=== PATIENT | male | born 1970 | race Caucasian/White ===

== ENCOUNTER 2016-12-02 14:29 | Inpatient (IN) | payer OTHER ==
[~2016-12-02] VITALS: Ht 190.5 cm; Wt 142.6 kg
--- NOTE | 2016-12-02 14:47 | NUR ---
PT BIB [facility] FOR C/O LEFT KNEE PAIN. PER PT HE WAS AT A [employer] HOUSE [employer] FOR FLYS WHEN HE SLIPPED AND FELL INJURING HIS LEFT KNEE. PT REPORTS HIS KNEE IS AN ACHING FEELING AND RATES THE PAIN A 6/10 AT THE TIME OF ARRIVAL TO ED. PT RECEVIED 100MCG FENTANYL FIXTURE MAKER. PT A&OX4, BREATHING E/U. PTS SKIN WARM AND DRY TO TOUCH.
--- NOTE | 2016-12-02 15:19 | NUR ---
PT MEDICATED PER EMAR ORDERS. PT EDUCATED ON MEDICATION PRIOR TO ADMINISTRATION AND VERBALIZED UNDERSTANDING.
--- NOTE | 2016-12-02 15:34 | NUR ---
PT TO CT VIA QUE
[2016-12-02] MEDS ORDERED: SOTALOL HCL80 MG PO (15:53)
[2016-12-02] MEDS ORDERED: LIPITOR40 MG PO (15:54)
[2016-12-02] MEDS ORDERED: FLUOXETINE40 MG PO (15:54)
[2016-12-02] MEDS ORDERED: BUPROPION HYDR300 MG PO (15:54)
[2016-12-02] MEDS ORDERED: XARELTO10 M1 PO (15:54)
[2016-12-02] MEDS ORDERED: FISH OIL1000 MG PO (15:55)
[2016-12-02] MEDS ORDERED: C-10001000 MG PO (15:55)
--- NOTE | 2016-12-02 16:45 | NUR ---
REPORT GIVEN TO SHRAVAN BENTON TO ASSUME CARE OF PT PTS PRIMARY NURSE.
--- NOTE | 2016-12-02 17:25 | NUR ---
REC'D PT FROM ER VIA [facility]. PT IS AAOX4. TELE #26 SR WITH BBB. LUNG SOUNDS CLEAR. NO SOB NOTED. LLE IN LONG LEG ORTHOGLASS SPLINT WITH AMADOR BANDAGE. PT C/O 5/10 LEFT KNEE PAIN. IV NOTED TO RAC. INTACT AND PATENT. ORIENTED PT TO CALL LIGHT. BED IN LOWEST POSITION. WILL ENDORSE TO PRIMARY RN.
[2016-12-02 17:30] VITALS: BP 117/68
[2016-12-02 17:38] VITALS: BP 117/68
--- NOTE | 2016-12-02 18:00 | NUR ---
RECEIVED REPORT FROM JEANNE, ASSUMING PT CARE RESPONSABILITIES.
[2016-12-02 18:08] LABS: PLATELET COUNT 224 x10^3mcL (130-400); RED CELL DISTRIBUTION WIDTH 14.4 % (11.5-14.5)
[2016-12-02 18:10] LABS: BASOPHIL % 0 % (0-2)
[2016-12-02 18:14] LABS: ALBUMIN 3.7 g/dL (3.4-5.0); ALKALINE PHOSPHATASE 55 U/L (46-116); ALT/SGPT 40 U/L (16-63); AST/SGOT 16 U/L (15-37); BILIRUBIN TOTAL 1.2 mg/dL (0.20-1.00); CALCIUM 8.9 mg/dL (8.5-10.1); CARBON DIOXIDE 25.8 mmol/L (21-32); CHLORIDE SERUM 98 mmol/L (98-107); GFR1 > 60 mL/min; GLUCOSE SERUM 104 mg/dL (74-106); MAGNESIUM 2.1 mg/dL (1.8-2.4); POTASSIUM SERUM 4.2 mmol/L (3.5-5.1); SODIUM SERUM 133 mmol/L (136-145); TOTAL PROTEIN, SERUM 7.1 g/dL (6.4-8.2)
--- NOTE | 2016-12-02 18:17 | NUR ---
CHECKED ON PT, SITTING HAVING DINNER DENIES ANY NEED OF PAIN MEDS AT THIS TIME, PT PROVIDED WITH EDUCATION ON PAIN MANAGEMENT NOT TO ALLOW PAIN TO BECOME TOO ELEVATED WHERE IT MAY BE HARD TO CONTROL LATER ON AND MANAGE IT. PT VERBALIZED UNDERSTANDING CALL LIGHT IN REACH NEEDS ATTENDED TO.
[2016-12-02 18:25] LABS: FREE T4 0.98 ng/dL (0.76-1.46); FREE THYROXINE INDEX 2.2 ug/dL (1.4-4.5); T4(THYROXINE) 6.2 ug/dL (4.7-13.3)
--- NOTE | 2016-12-02 19:30 | NUR ---
REC'D PT FROM DAY NURSE. AAOX4, SPEECH CLEAR, FOLLOWS COMMANDS. NO SIGNS OF DISTRESS NOTED. BREATHING EVEN/UNLABORED ON RA. ON TELE 26, PACED ON DEMAND. XARELTO ON HOLD, TO START HEPARIN SQ. NO EDEMA NOTED. DENIES ABD PAIN, TENDERNESS, OR N/V. VOIDING FREELY. L TIBIAL FX. ORTHOGLASS SPLINT TO LLE WRAPPED WITH AMADOR BANDAGE, CDI. PT REPORTS PAIN TO LLE 4/10, TOLERABLE AT THIS TIME. SKIN INTACT. CALL LIGHT WITHIN REACH, BED AT LOWEST POSITION. WILL CONTINUE TO MONITOR.
[2016-12-02 21:25] VITALS: BP 106/56
--- NOTE | 2016-12-02 21:37 | NUR ---
PT C/O LLE PAIN 5/10. NORCO GIVEN PER ORDER. WILL MONITOR FOR RELIEF.
[2016-12-02 23:14] LABS: microscopic required? NO
[2016-12-02 23:35] LABS: UA SPECIFIC GRAVITY 1.015 (1.005-1.035)
[2016-12-02 23:36] LABS: urine erythrocyte NEGATIVE (NEGATIVE)
[2016-12-03 00:15] LABS: AMPHETAMINE QUAL UR NONE DETECTED (NEG <=1000)
--- NOTE | 2016-12-03 01:26 | NUR ---
PT RESTING IN BED WITH EYES CLOSED. NO SIGNS OF DISTRESS NOTED. BREATHING EVEN/UNLABORED ON RA. CALL LIGHT WITHIN REACH, BED AT LOWEST POSITION. WILL CONTINUE TO MONITOR.
[2016-12-03 05:25] VITALS: BP 99/64
--- NOTE | 2016-12-03 06:33 | NUR ---
PT RESTING IN BED. NO SIGNS OF DISTRESS NOTED. BREATHING EVEN/UNLABORED ON RA. C/O LLE PAIN 08/13. NORCO GIVEN PER ORDER. SPLINT TO LLE WITH AMADOR WRAP IN PLACE, CDI. NO SIGNIFICANT CHANGES DURING SHIFT. REFUSING LAB DRAW. EXPLAINED IMPORTANCE OF LAB DRAWS FOR CARE AND TRENDING DATA. PT VERBALIZED UNDERSTANDING BUT STATED HE JUST HAD A LAB DRAW LESS THAN 24 HR AGO AND REFUSES AT THIS TIME. DR. CARBAJAL MADE AWARE. WILL ENDORSE TO DAY NURSE.
--- NOTE | 2016-12-03 07:29 | NUR ---
echocardiogram pending-patient requested test be done after he eats
--- NOTE | 2016-12-03 07:30 | NUR ---
PT RECEIVED FROM NIGHT NURSE IN NO ACUTE DISTRESS. RESPIRATIONS EVEN AND UNLABORED ON RA. L EXTREMITY ELEVATED ON PILLOW. DENIES PAIN AT THIS TIME. IVF INFUSING AT BEDSIDE. BED IN LOWEST POSITION. CALL LIGHT WITHIN REACH. WILL CONTINUE TO MONITOR.
[2016-12-03 10:12] VITALS: BP 112/69
--- NOTE | 2016-12-03 12:48 | NUR ---
PT GIVEN LOADING DOSE OF 8600 UNITS OF HEPARIN. STARTED ON 1500 UNITS/HR PER HEPARIN PROTOCOL. VERIFIED BY SANDRA BENTON. ORDERED NEXT PTT FOR 1830.
--- NOTE | 2016-12-03 12:50 | NUR ---
PT SITTING UP IN BED IN NO ACUTE DISTRESS. RESPIRATIONS EVENA ND UNLABORED ON RA. DENIES PAIN AT THIS TIME. IVF AND HEPARING RUNNING AT BEDSIDE. BED IN LOWEST POSITION. CALL LIGHT WITHIN REACH. WILL CONTINUE TO MONITOR.
[2016-12-03 13:37] VITALS: BP 99/53
[2016-12-03 16:36] VITALS: BP 106/54
--- NOTE | 2016-12-03 18:53 | NUR ---
PT IS SITTING UP IN BED IN NO ACUTE DISTRESS. RESPIRATIONS EVEN AND [id number] ON RA. FAMILY IS AT BEDSIDE. IVF AND HEPARIN INFUSING AT BEDSIDE. LLE ELEVATED ON TWO PILLOWS. ORTHOGLASS SPLINT AND AMADOR WRAP IN PLACE. SENSATION INTACT, CAP REFILL <2, ABLE TO WIGGLE TOES. DENIES PAIN AT THIS TIME. BED IN LOWEST POSITION, CALL LIGHT WITHIN REACH. WILL ENDORSE TO NIGHT NURSE.
--- NOTE | 2016-12-03 19:10 | NUR ---
AOX4. TELE # 26, PACED. LUNGS CLEAR AND UNLABORED ON RA. RADIAL AND PEDAL PULSES PALPABLE, NO EDEMA NOTED. BOWEL SOUNDS ACTIVE X 4 QUADRANTS. NS INFUSING @ 150 ML/HR TO RIGHT AC, NO REDNESS OR SWELLING. LLE NOTED WITH ORTHOGLASS SPLINT AND WRAPPED WITH AMADOR BANDAGE. DENIES PAIN AT THIS TIME. HEPARIN DRIP INFUSING AT 1500 UNITS/HR. AWAITING RESULTS FROM PTT DRAW AT 1830. BED IN LOW POSITION, CALL LIGHT IN REACH. INSTRUCTED TO CALL FOR ASSISTANCE.
[2016-12-03 22:01] VITALS: BP 105/58
--- NOTE | 2016-12-03 22:41 | NUR ---
2130 PTT: 90.5, HEPARIN DRIP REDUCED 300 UNITS/HOUR AT 2230, PER HEPARIN PROTOCOL. NEXT PTT ORDERED FOR 0230.
--- NOTE | 2016-12-04 01:30 | NUR ---
BREATHING EVEN AND UNLABORED. NO ACUTE DISTRESS NOTED. WILL CONTINUE TO MONITOR.
--- NOTE | 2016-12-04 03:05 | NUR ---
0200 PTT RESULT 73.3, INFUSION REDUCED BY 300 UNITS TO 900 UNITS/HR. NEXT PTT ORDERED FOR 0700.
[2016-12-04 05:54] VITALS: BP 98/63
--- NOTE | 2016-12-04 06:27 | NUR ---
NO ACUTE CHANGES DURING SHIFT. WILL ENDORSE TO ONCOMING RN.
--- NOTE | 2016-12-04 07:16 | NUR ---
RECEIVED PT IN NO ACUTE DISTRESS. PT SITTING UP IN BED, AAOX4. LLE ELEVATED ON TWO PILLOWS. ORTHOGLASS SPLINT WITH AMADOR WRAP IN PLACE. SENSATION INTACT, ABLE TO WIGGLE TOES, CAP REFILL <2. PT DENIES PAIN AT THIS TIME. IVF AND HEPARIN RUNNING AT BEDSIDE. WILL CONTINUE TO MONITOR.
[2016-12-04 07:49] LABS: BASOPHIL % 0.7 % (0-2); PLATELET COUNT 201 x10^3mcL (130-400)
[2016-12-04 07:50] LABS: RED CELL DISTRIBUTION WIDTH 14.8 % (11.5-14.5)
[2016-12-04 08:00] VITALS: BP 113/68
--- NOTE | 2016-12-04 08:52 | NUR ---
PTT 46.3. NO ADJUSTMENTS AT THIS TIME. NEXT PTT ORDERED FOR 1130. NO SIGNS OF ACTIVE BLEEDING NOTED. WILL CONTINUE TO MONITOR.
[2016-12-04 08:53] LABS: CALCIUM 8.5 mg/dL (8.5-10.1); CARBON DIOXIDE 28.4 mmol/L (21-32); CHLORIDE SERUM 103 mmol/L (98-107); GFR1 > 60 mL/min; GLUCOSE SERUM 94 mg/dL (74-106); POTASSIUM SERUM 3.9 mmol/L (3.5-5.1); SODIUM SERUM 134 mmol/L (136-145)
--- NOTE | 2016-12-04 13:37 | NUR ---
PT SITTING UP IN BED IN NO ACUTE DISTRESS. LLE ELEVATED ON TWO PILLOWS. ABLE TO WIGGLE TOES, SENSATION INTACT, CAP REFILL <2. DENIES PAIN AT THIS TIME. IVF AND HEPARING RUNNING AT BEDSIDE. NO SIGNS OF ACTIVE BLEEDING NOTED. FAMILY AT BEDSIDE. BED IN LOWEST POSITION. CALL LIGHT WITHIN REACH. WILL CONTINUE TO MONITOR.
--- NOTE | 2016-12-04 14:14 | NUR ---
PTT 39.5, REBOLUSED 5800 UNITS. INCREASED RATE TO 1200 UNITS PER HOUR. NEXT PTT ORDERED FOR 1800. NO ACTIVE SIGNS OF BLEEDING NOTED. WILL CONTINUE TO MONITOR.
[2016-12-04 14:21] VITALS: BP 97/52
[2016-12-04 17:05] VITALS: BP 116/68
--- NOTE | 2016-12-04 18:57 | NUR ---
PT SITTING UP IN BED IN NO ACUTE DISTRESS. AAOX4. RESPIRATIONS EVEN AND UNLABORED ON RA. ORTHOGLASS SPLINT WITH AMADOR WRAP IN PLACE TO LLE. LOLE ELEVATED ON TWO PILLOWS. SENSATIONS INTACT, ABLE TO WIGGLE TOES, CAP REFILL <2. IVF AND HEPARIN RUNNING AT BEDSIDE. BED IN LOWEST POSITION. CALL LIGHT WITHIN REACH. WILL ENDORSE TO NIGHT NURSE
--- NOTE | 2016-12-04 20:29 | NUR ---
PTT 64.8 NO CHANGES PER HEPARIN PROTOCOL ORDER , NO S/S OF BLEEDING NOTED, NEXT PTT WILL BE MIDNIGHT ,PIV INTACT INFUSING WELL, PT DENY PAIN AT THE MOMENT , PT HAS ORTHOGLASS SPLINT WITH AMADOR WRAP TO LEFT LEG ABLE TO WIGGLE HIS TOES DENY NUMBNESS/TINGLING AT THE MOMENT , ON TELE NUMBER 26 THAT SHOWS NSR WITH BBB , CALL LIGHT WITHIN PT'S REACH , WILL CON'T TO MONITOR AND ASSIST PT WITH CARE.
[2016-12-04 21:30] VITALS: BP 116/71
--- NOTE | 2016-12-04 22:00 | NUR ---
RESUME CARE FROM THE OTHER NURSE AND ASSESSMNET DONE AND PATIENT RESTNG AT THIS TIME,WILL CONTINUE TO MONITOR.
--- NOTE | 2016-12-05 01:00 | NUR ---
HEPARIN HELD AT 0100 PER ORDER,NO ADVERSW REACTION NOTICE AT THIS TIME,MADE COMFORTABLE IN BED AND WILL CONTINUE TO MONITOR.
--- NOTE | 2016-12-05 03:00 | NUR ---
PTT WAS 44.5 HEPARIN DRIP OFF WILL ENDORSED AND WILL CONTINUE TO MONITOR.
[2016-12-05 05:32] VITALS: BP 110/67
--- NOTE | 2016-12-05 06:21 | NUR ---
PT HAD A RESTING NIGHT V/S STABLE,KEPT CLEAN AND DRY TO TOUCH AND NO CHANGE IN CONDITION AND WILL CONTINUE TO MONITOR.
--- NOTE | 2016-12-05 06:24 | NUR ---
PT HAD CHLORHEXIDINE WIPES ORDER AND THE LT WAS ELMA,WILL CONTINUE TO MONITOR.
[2016-12-05 06:37] LABS: BASOPHIL % 0.4 % (0-2); PLATELET COUNT 206 x10^3mcL (130-400); RED CELL DISTRIBUTION WIDTH 14.6 % (11.5-14.5)
[2016-12-05 06:40] LABS: CALCIUM 9.2 mg/dL (8.5-10.1); CARBON DIOXIDE 29.7 mmol/L (21-32); CHLORIDE SERUM 103 mmol/L (98-107); GFR1 > 60 mL/min; GLUCOSE SERUM 90 mg/dL (74-106); HDL CHOLESTEROL 44 mg/dL (40-60); POTASSIUM SERUM 4.1 mmol/L (3.5-5.1); SODIUM SERUM 137 mmol/L (136-145); TRIGLYCERIDES 82 mg/dL (<150)
[2016-12-05 06:49] LABS: CHOLESTEROL 117 mg/dL (<200); CHOLESTEROL/HDL RATIO 2.7
--- NOTE | 2016-12-05 07:14 | NUR ---
PT GOING TO OR VIA [facility] AND IN STABLE CONDITON,ENDORSED TO THE AM NURSE WILL CONTINUE TO MONITOR
--- NOTE | 2016-12-05 07:21 | NUR ---
RECEIVED PT LAYING IN BED PREPARING TO LEAVE FOR PROCEDURE WITH O.R. STAFF. NO APPARENT SIGNS OF ACUTE DISTRESS NOTED AT THIS TIME. RESPIRATIONS APPEAR EVEN AND UNLABORED ON ROOM AIR. IV TO RFA SALINE LOCKED AT THIS TIME. WILL AWAIT RETURN FOR FURTHER ASSESSMENT.
--- NOTE | 2016-12-05 08:45 | NUR ---
PT OFF UNIT FOR PROCEDURE (ORIF) DURING ROUNDS
--- NOTE | 2016-12-05 10:49 | NUR ---
PT RETURNED FROM PROCEDURE. VSS. MORNING MEDS GIVEN. PT STATES THAT HIS PAIN IS CONTROLLED. CURRENTLY ON 3L NC. CALL LIGHT WITHIN REACH. BED IN LOWEST POSITION. URINAL AT BEDSIDE RAIL. WILL CONTINUE TO MONITOR
[2016-12-05 10:53] VITALS: BP 110/75
--- NOTE | 2016-12-05 11:29 | NUR ---
PT C/O ITCHING TO ENTIRE BODY. S/P PROCEDURE. PAGED DR. CARBAJAL AND SENT [facility]. DENIES SOB. CALL LIGHT WITHIN REACH. WILL CONTINUE TO MONITOR
--- NOTE | 2016-12-05 11:30 | NUR ---
CALL BACK RECEIVED FROM DR. CARBAJAL. ORDER FOR BENADRYL WILL BE PUT IN. AWAITING VERIFICATION
--- NOTE | 2016-12-05 11:44 | NUR ---
PT GIVEN BENADRYL PO PRN FOR ITCHING TO BODY. DENIES SOB AT THIS TIME. ENCOURAGED TO CALL FOR ASSISTANCE IF SYMPTOMS WORSEN. PT TEACHING ABOUT SIDE EFFECTS OF MEDICATION (DROWSINESS, DRY MOUTH). ENCOURAGED PT TO TAKE IN FLUIDS. CALL LIGHT WITHIN REACH. BED IN LOWEST POSITION. WILL CONTINUE TO MONITOR
--- NOTE | 2016-12-05 12:00 | NUR ---
PT RESTING IN BED FAMILY AT BEDSIDE. STATES THAT THE ITCHING IS STILL PRESENT. PROVIDED PT WITH SANDWICH AND HYDRATION UNTIL LUNCH IS DELIVERED. IV INFUSING WELL. CALL LIGHT WITHIN REACH. WILL CONTINUE TO MONITOR
--- NOTE | 2016-12-05 12:51 | NUR ---
PAGED DR. CARBAJAL AND SENT [facility]. PER O.R. NURSE, DR. SHELTON WOULD LIKE AN ORDER TO HAVE PACEMAKER INTERIGATED. ALSO SENT A REQUEST PER PT TO HAVE AN ORDER FOR TOPICAL CREAM FOR ITCHING. AWAITING CALL BACK
--- NOTE | 2016-12-05 12:56 | NUR ---
CALL CALL BACK RECEIVED FROM DR. CARBAJAL. WILL INITATE IV BENADRYL FOR ITCHING
[2016-12-05 13:29] VITALS: BP 109/64
--- NOTE | 2016-12-05 14:47 | NUR ---
PT C/O PAIN 11/13. ENCOURAGED PT TO DEEP BREATH AND TO RELAX. GIVEN MORPHINE IVP PRN. CALL LIGHT WITHIN REACH. WILL CONTINUE TO MONITOR
--- NOTE | 2016-12-05 16:31 | NUR ---
SENT DR. SOLOMON ALEXIS IN REGARDS TO PT PAIN. PT STATES THE MORPHINE WAS NOT EFFECTIVE AND IS STILL IN SEVERE PAIN. AWAITING CALL BACK
[2016-12-05 16:47] VITALS: BP 112/59
--- NOTE | 2016-12-05 16:53 | NUR ---
DR. CARBAJAL RECEIVED PAGEGATE; ORDER FOR ADDITIONAL 2MG OR MORPHINE IVP PRN WAS ORDERED, AND MORPHINE STANDING ORDER CHANGED TO 4MG
--- NOTE | 2016-12-05 19:30 | NUR ---
RECEIVED REPORT FROM CHETAN TELLES. PT RESTING IN BED IN NO ACUTE DISTRESS. AAOX4. DENIES OF CARRILLO/DIZZINESS. ON TELE Thu PACED ON DEMAND. DENIES OF ANY CHEST DISCOMFORT. PER PULSES MOD. TRACE EDEMA ON LLE. PT SP ORIF TODAY ON LLE, AMADOR WRAP AND BRACE APPLIED. IN RA WITH SAT OF 96%. BREATHING EVENLY AND UNLABOERD. NO SOB NOTED. LUNGS CTA. BS ACTIVE. ABD SOFT AND NON DISTENDED. LAST BM 12/01 FORMED STOOL PER PT. VOIDS FREELY IN THE URINAL. EDUCATED PT ON HOW TO UTILIZE HIS TRAPEZE TO REPOSITION HIMSELF. AMADOR WRAP DRESSING CDI. ADMITS TO LLE PAIN. WILL MEDICATE PER PRN ORDERS. IV ON RFA PATENT. SAFETY MEASURES ENSURED. INSTRUCTED PT TO CALL FOR ANY NEEDS/ASSISTANCE. CALL LIGHT WITHIN REACH. WILL CONT TO MONITOR PT.
[2016-12-05 21:20] VITALS: BP 100/53
--- NOTE | 2016-12-06 05:07 | NUR ---
PAIN MANAGEMENT ENFORCED. PT WAS IN NO ACUTE DISTRESS. MADE COMFORTABLE IN REPOSITIONING LLE. SAFETY MEASURES WERE ENSURED. CALL LIGHT WITHIN REACH.
[2016-12-06 05:38] VITALS: BP 110/63
[2016-12-06 07:48] LABS: BASOPHIL % 0.4 % (0-2); PLATELET COUNT 217 x10^3mcL (130-400)
[2016-12-06 07:49] LABS: RED CELL DISTRIBUTION WIDTH 14.6 % (11.5-14.5)
--- NOTE | 2016-12-06 07:53 | NUR ---
AAO TIMES 4. TELE # 26 100% PACED, RATE 61. LUNGS CTA AND SOMEWHAT DIMINISHED. O2 SAT ON RA 96%. BS'S ACTIVE TIMES 4. PERIPHERAL PULSES PALPABLE. NO EDEMA. ON HEPARIN SQ. COOPERATIVE AND PLEASANT. NO C/O PAIN AT THIS TIME. IV SITE CDI. PT IS ON HIS COMPUTER AND EATING BREAKFAST.NO SOB.
[2016-12-06 08:10] LABS: CALCIUM 8.8 mg/dL (8.5-10.1); CARBON DIOXIDE 28.4 mmol/L (21-32); CHLORIDE SERUM 101 mmol/L (98-107); CREATININE SERUM 1.1 mg/dL (0.7-1.3); GFR1 > 60 mL/min; GLUCOSE SERUM 114 mg/dL (74-106); MAGNESIUM 2.1 mg/dL (1.8-2.4); PHOSPHOROUS 4.2 mg/dL (2.5-4.9); POTASSIUM SERUM 4.3 mmol/L (3.5-5.1); SODIUM SERUM 135 mmol/L (136-145)
--- NOTE | 2016-12-06 08:47 | NUR ---
MEDICAL ROUNDS WERE DONE WITH DR ULRICH AND THE MEDICINE TEAM. THE PLAN FOR TODAY IS TO POSSIBLY SEND HIM TO REHAB AT [facility] IF POSSIBLE. HE MIGHT STAY ANOTHER DAY TODAY.
[2016-12-06 09:57] VITALS: BP 114/63
[2016-12-06 13:13] VITALS: BP 114/63
[2016-12-06 18:27] VITALS: BP 116/71
--- NOTE | 2016-12-06 18:58 | NUR ---
AAO TIMES 4. NO C/O PAIN. NO SOB. LEFT KNEE DRESSING CDI. COOPERATIVE AND PLEASANT. NO C/O PAIN. IV SITE CDI. NO TELE, MED SURG.
--- NOTE | 2016-12-06 19:30 | NUR ---
RECEIVED REPORT FROM CHETAN DESAI. PT RESTING IN BED IN NO ACUTE DISTRESS OR DISCOMFORT. AAOX4. DENIES OF CARRILLO/DIZZINESS. M/S. PER PULSES STRONG. NEG ON EDEMA. ON HEP SQ. IN RA WITH SAT OF 94%. BREATHING EVENLY AND UNLABORED. NO SOB NOTED. CRACKLES ON THO. ENCOURAGED PT TO UTILIZE INCENTIVE SPIROMETER AT THE BEDSIDE 10X/HR OR TOLERATED. BS ACTIVE. ABD SOFT AND OBESE. LAST BM 12/02/16. VOIDS FREELY IN THE URINAL. SP ORIF ON 12/05 ON LLE WITH AMADOR WRAP AND BRACE APPLIED. PT AWARE ON HOW TO UTILIZE TRAPEZE ON THE BEDSIDE TO REPOSITION SELF. ADMITS TO LLE PAIN, WILL MEDICATE PER PRN ORDERS. IV ON RFA PATENT. SAFETY MEASURES ENSURED. INSTRUCTED PT TO CALL FOR ANY NEEDS/ASSISTANCE. CALL LIGHT WITHIN REACH. WILL CONT TO MONITOR PT.
[2016-12-06 21:17] VITALS: BP 111/59
--- NOTE | 2016-12-07 05:06 | NUR ---
PT SLEPT COMFORTABLY THROUGH OUT THE NIGHT. WAS IN NO ACUTE DISTRESS OR DISCOMFORT. PAIN MANAGEMENT ENFORCED. SAFETY MEASURES WERE ENSURED. CALL LIGHT WITHIN REACH.
[2016-12-07 05:44] VITALS: BP 117/71
[2016-12-07 07:08] LABS: BASOPHIL % 0.4 % (0-2); PLATELET COUNT 221 x10^3mcL (130-400); RED CELL DISTRIBUTION WIDTH 14.5 % (11.5-14.5)
[2016-12-07 07:20] LABS: CARBON DIOXIDE 28.2 mmol/L (21-32); CHLORIDE SERUM 101 mmol/L (98-107); GFR1 > 60 mL/min; GLUCOSE SERUM 101 mg/dL (74-106); MAGNESIUM 2.1 mg/dL (1.8-2.4); PHOSPHOROUS 3.5 mg/dL (2.5-4.9); POTASSIUM SERUM 4.2 mmol/L (3.5-5.1); SODIUM SERUM 136 mmol/L (136-145)
--- NOTE | 2016-12-07 07:51 | NUR ---
AAO TIMES 4. NO TELE. LUNGS CTA. NO SOB. O2 SAT ON RA 97%. BS'S ACTIVE TIMES 4. SPARKS STRONG, EXCEPT LEFT LEG WITH AMADOR WRAP AND BRACE. PERIPHERAL PULSES PALPABLE. NO EDEMA. LEFT FOOT WARM AND TOES ARE MOVEABLE. NO C/O PAIN. RFA IV SITE CDI. COOPERATIVE.
--- NOTE | 2016-12-07 09:10 | NUR ---
MEDICAL ROUNDS WERE DONE AT [address] ULRICH AND THE MEDICINE TEAM, THE PLAN IS TO SEND HIM TO [facility].
[2016-12-07 09:37] VITALS: BP 116/63
--- NOTE | 2016-12-07 10:11 | NUR ---
GAVE PT FLEETS ENEMA AT 1005, HE EXPELLED THE ENEMA AT 1008. PT WAS TOLD TO HOLD IT FOR 15 MINUTES IF HE COULD.
--- NOTE | 2016-12-07 10:50 | NUR ---
PT HAD A LARGE BROWN BM AFTER THE ENEMA.
--- NOTE | 2016-12-07 13:10 | NUR ---
DR ALEMAN SAID IT WAS OK TO GIVE THE HEPARIN SQ DUE AT 1400 EVEN THOUGH XARALTO WILL BE GIVEN AT 1700.
[2016-12-07 13:47] VITALS: BP 120/72
--- NOTE | 2016-12-07 15:38 | NUR ---
PLACED PT IN CHAIR WITH MAX ASSIST NEXT TO BED WITH 2 MALE NURSES, PT PIVOTED HIS ONE GOOD RIGHT FOOT WHILE DOING NWB TO LEFT LEG WITH BRACE.
--- NOTE | 2016-12-07 17:11 | NUR ---
AT 1630 SEVERAL NURSES HELPED HIM GET BACK IN BED. HE TOLERATED WELL. I OFFERED PAIN MEDICINE PRIOR TO HIM GETTING UP BUT HE REFUSED.
[2016-12-07 17:15] VITALS: BP 96/53
--- NOTE | 2016-12-07 18:11 | NUR ---
PT EATING DINNER. NO TELE, MED SURG PATIENT. NO C/O PAIN. NO SOB. LEFT LEG BRACE ELEVATED ON PILLOWS. IV SITE TO RFA PATENT, CDI. COOPERATIVE.
--- NOTE | 2016-12-07 19:30 | NUR ---
RECEIVED REPORT FROM CHETAN DESIA. PT RESTING IN BED COMFORTABLY IN NO ACUTE DISTRESS. AAOX4. DENIES OF CARRILLO/DIZZINESS. M/S PT. DENIES OF ANY CHEST DISCOMFORT. PER PULSES MOD. NEG ON EDEMA. PT SP ORIF ON LLE WITH AMADOR WRAPPED AND BRACE APPLIED. IN RA WITH SAT OF 98%. BREATHING EVENLY AND UNLABORED. NO SOB NOTED. ENCOURAGED PT TO UTILIZE INCENTIVE SPIROMETER EVERY HOUR OR TOLERATED. BS ACTIVE. ABD SOFT AND OBESE. LAST BM TODAY, POST ENEMA. VOIDS FREELY IN THE URINAL. BEDRESTED AT THIS TIME. TRAPEZE PROVIDED TO ABLE TO REPOSITION SELF. DENIES OF ANY PAIN AT THIS TIME. IV ON RFA PATENT. SAFETY MEASURES ENSURED. INSTRUCTED PT TO CALL FOR ANY NEEDS/ASSISTANCE. CALL LIGHT WITHIN REACH. WILL CONT TO MONITOR PT.
[2016-12-07 21:39] VITALS: BP 115/65
--- NOTE | 2016-12-08 05:03 | NUR ---
PT SLEPT COMFORTABLY THROUGH OUT THE NIGHT. PAIN MANAGEMENT ENFORCED. SAFETY MEASURES WERE ENSURED. CALL LIGHT WITHIN REACH.
[2016-12-08 05:22] VITALS: BP 108/49
[2016-12-08 06:37] LABS: BASOPHIL % 0.4 % (0-2); PLATELET COUNT 241 x10^3mcL (130-400)
[2016-12-08 06:44] LABS: CALCIUM 9.3 mg/dL (8.5-10.1); CARBON DIOXIDE 27.9 mmol/L (21-32); CHLORIDE SERUM 100 mmol/L (98-107); GFR1 > 60 mL/min; GLUCOSE SERUM 99 mg/dL (74-106); MAGNESIUM 2.1 mg/dL (1.8-2.4); SODIUM SERUM 134 mmol/L (136-145)
[2016-12-08 06:55] LABS: RED CELL DISTRIBUTION WIDTH 14.7 % (11.5-14.5)
--- NOTE | 2016-12-08 07:40 | NUR ---
RECEIVED PT IN BED ALERT AND ORIENTED X4. S/P ORIF OF LLE. BRACE AND AMADOR WRAP NOTED TO LLE. PT DENIES PAIN OR DISCOMFORT AT THIS TIME. NO EDEMA NOTED. DENIES NUMBNESS OR TINGLING TO L FOOT. PEDAL PULSES PALPABLE. PT ABLE TO REPOSITION IN BED WITH USE OF TRAPEZE. INSTRUCTED TO USE CALL LIGHT WHEN IN NEED OF ANY ASSISTANCE.
[2016-12-08 09:40] VITALS: BP 116/63
[2016-12-08 13:03] VITALS: BP 115/54
[2016-12-08 16:53] VITALS: BP 115/47
--- NOTE | 2016-12-08 18:40 | NUR ---
PT LYING IN BED, USES TRAPEZE TO REPOSITION SELF IN BED. DENIES ANY PAIN OR DISCOMFORT. CALL LIGHT WITHIN REACH.
--- NOTE | 2016-12-08 19:15 | NUR ---
AOX4. MED SURG. LUNGS CLEAR AND UNLABORED, ON RA. RADIAL AND PEDAL PULSES PALPABLE, NO EDEMA NOTED. BOWEL SOUNDS ACTIVE X 4 QUADRANTS. LLE NOTED WITH BRACE AND AMADOR WRAP. DENIES PAIN AT THIS TIME. NS INFUSING @ 10 ML/HR TO RIGHT FA, NO REDNESS OR SWELLING. BED IN LOW POSITION, CALL LIGHT IN REACH. INSTRUCTED TO CALL FOR ASSISTANCE.
[2016-12-08 21:11] VITALS: BP 110/69
--- NOTE | 2016-12-09 01:26 | NUR ---
RESTING WITH EYES CLOSED, AWAKENS EASILY TO VERBAL STIMULI. BREATHING EVEN AND UNLABORED. NO ACUTE DISTRESS NOTED. WILL CONTINUE TO MONITOR.
[2016-12-09 05:46] VITALS: BP 117/67
--- NOTE | 2016-12-09 06:26 | NUR ---
NO ACUTE CHANGES DURING SHIFT. WILL ENDORSE TO ONCOMING RN.
--- NOTE | 2016-12-09 07:15 | NUR ---
RECEIVED PT IN BED ALERT AND ORIENTED X4. DENIES ANY PAIN OR DISCOMFORT AT THIS TIME. S/P ORIF OF LLE 12/05/16. AMADOR WRAP AND BRACE NOTED TO LLE. PT DENIES ANY NUMBNESS OR TINGLING TO BLE. PEDAL PULSES PALPABLE. NO EDEMA NOTED. PT USES OVERHEAD TRAPEZE TO REPOSITION IN BED. INSTRUCTED TO USE CALL LIGHT WHEN IN NEED OF ANY ASSISTANCE.
[2016-12-09 09:12] VITALS: BP 113/63
--- NOTE | 2016-12-09 10:41 | NUR ---
Initial Nutrition Assessment Dx: Tibia Plateau Fracture PMHx: HTN, depression, HLD, a fib, R sided stroke PSHx: Pacemaker placement Labs: Na 134 L, BG 99; (12/02) TBili 1.2 H, A1C 5.7 Meds: Colace, D50, humulin R, hydrocortisone, NS IV, theragran, vitamin C 500 mg daily, zofran Current Diet Order: Regular PO Intakes: (12/07) B: 100%, L: 100%, D: 100%; (12/08) B: 100%, L: 100%; (12/09) B: 100% Ht: 75", 6' 3". Wt: 314 lb, 143 kg. BMI: 39.3 kg/m2 (Obesity Class II) IBW: 196 lb, 89 kg. %IBW: 161%. Adj BW: 226 lb, 103 kg. UBW: Pt unable to recall. Age: 46 Y/O M Food Allergies: None Skin: s/p ORIF L tibial plateau. Vinh 17. Edema: None GI: Active bowel sounds. Last BM 12/07. Pt found with mechanical fall with L tibial plateau fracture per doctor's notes. Per doctor's progress note 12/08, per case management, [facility] unable to accept pt due to pt is a 2 person max assist, able to take pt tomorrow, will receive inpatient PT here today, plan to transfer tomorrow; Pt with traumatic and pathologic fracture of L tibial plateau s/p ORIF post-op day 3 (12/05/16) with Dr. William. Pt was seen resting in bed during RD visit, playing on laptop. Pt stated he has good PO intakes at this time, no issues chewing/swallowing, doing well at this time. No further questions asked. Problem with: N: None. V: None. D: None. C: None. Problems with: Chewing: None. Swallowing: None. Current Appetite: Good Recent Weight Change: None per pt. % Weight Change: N/A Vitamin/Supplement use: None Diet at Home: Regular Physical Activity: Limited due to pain/surgery Education: Pt declined when RD offered Estimated Nutritional Needs Based IBW 196 lb, 89 kg. Energy: 0156-9639 kcal/day (25-30 kcal/kg for Maintenance) Protein: 107-116 gm/day (1.2-1.3 gm/kg for Surgical Healing) Fluids: 2670 ml/day (30 ml/kg for Maintenance) or per doctor Nutrition Diagnosis Increase protein needs related to surgical healing as evidenced by pt with traumatic and pathologic fracture of L tibial plateau s/p ORIF post-op day 3 (12/05/16) Intervention 1. Continue Regular diet per doctor. Monitor/Evaluate Goal: PO intakes to meet >75% of estimated needs Monitor: PO intakes, tolerance to diet, labs, skin integrity, GI function F/U in 7 days as LOW risk (12/16)
--- NOTE | 2016-12-09 12:00 | NUR ---
NORCO PO GIVEN FOR PTS COMPLAINT OF PAIN TO LLE RATED 6/10 AFTER GETTING UP WITH PHYSICAL THERAPY.
--- NOTE | 2016-12-09 15:50 | NUR ---
PHYSICAL THERAPY DAILY NOTES CO-SIGN All documentation done by the Wet End Helper for 12/09/16 has been reviewed. I agree with the documentation. Reviewed/Co-Signed by: Rajeev Hernández PT Documentation Done by: ANDREA DALAL FABRICATION DEPARTMENT SUPERVISOR PT CONTINUES [place] SLOW STADY GAINS TOWARDS REAHB GOALS
[2016-12-09 16:59] VITALS: BP 113/72
--- NOTE | 2016-12-09 17:48 | NUR ---
REPORT GIVEN TO CHETAN LEDESMA IN [place] .
--- NOTE | 2016-12-09 18:40 | NUR ---
TRANSPORTATION HERE TO [facility] PT FOR TRANSFER TO [facility]. IV DC'D. VITAL SIGNS STABLE. PT DENIES ANY PAIN AT THIS TIME.
--- NOTE | 2016-12-09 18:46 | NUR ---
PT BROUGHT OFF FLOOR VIA [facility] ACCOMPANIED BY EMT FOR TRANSFER TO [facility]
== END 2016-12-09 18:46 | DRG 492 ==
LOC: ED 14:29 → MU 15:51 → DU 15:51 → MU 12-06 14:00
PROVIDERS: ADMIT Family Medicine
PROC: 0QSH04Z Reposition Left Tibia with Internal Fixation Device, Open Approach (ICD-10-PCS; principal; 2016-12-04)
PROC: 0QUH0JZ Supplement Left Tibia with Synthetic Substitute, Open Approach (ICD-10-PCS; 2016-12-04)
DX: S82.145A Nondisplaced bicondylar fracture of left tibia, initial encounter for closed fracture (principal); I50.43 Acute on chronic combined systolic (congestive) and diastolic (congestive) heart failure; I69.354 Hemiplegia and hemiparesis following cerebral infarction affecting left non-dominant side; S72.435A Nondisplaced fracture of medial condyle of left femur, initial encounter for closed fracture; I42.2 Other hypertrophic cardiomyopathy; I11.0 Hypertensive heart disease with heart failure; E78.5 Hyperlipidemia, unspecified; F32.9 Major depressive disorder, single episode, unspecified; R73.03 Prediabetes; I48.91 Unspecified atrial fibrillation; I44.7 Left bundle-branch block, unspecified; I27.2 Other secondary pulmonary hypertension; Z95.0 Presence of cardiac pacemaker; E66.9 Obesity, unspecified; W18.39XA Other fall on same level, initial encounter; Y93.89 Activity, other specified; Y92.018 Other place in single-family (private) house as the place of occurrence of the external cause; Z68.27 Body mass index [BMI] 27.0-27.9, adult
CPT/HCPCS: 76001; 82962; 83880; 84439; 94150; 97116-GP; 97530-GP; C1713; J0690; J1170; J1200; J1644; J2270; J2405; J2704; J3010; J3490; J7030; J7120; Q0092; Q0163